=== PATIENT | female | born 1990 | race Caucasian/White ===

== ENCOUNTER 2017-08-12 16:31 | Emergency (ER) | payer MEDICAID ==
[2017-08-12 16:55] VITALS: BP 125/76; PULSE 83
--- NOTE | 2017-08-12 16:56 | PD ---
HPI Chief Complaint decreased mvt Date Seen: Aug 12, 2017 Time Seen: 17:06 Travel History International Travel<30 Days: No Contact w/Intl Traveler<30Days: No History of Present Illness HPI Patient is a 27 year old at 37 and 0/7 weeks gestation, PHYLLIS 09/02/2017, who presents to the OB ED with decreased movement. She denies leakage of fluid , vaginal bleeding, and contractions. She feels baby moving regularly. She denies CARUSO/N/V/D/fever/sick contacts/SOB/calf pain/dizziness/seeing spots. OB care is with [facility]. Para: 0 : 1 History Past Medical History Medical History: Denies Significant Hx Past Surgical History Surgical History: No Previous Surgery Family History Family History: Negative Social History Alcohol Use: No Tobacco Use: No Substance Abuse: No Allergies-Medications (Allergen,Severity, Reaction): Coded Allergies: prednisolone (Verified Allergy, Severe, Anaphylaxis, 08/12/17) Review of Systems General / Constitutional: No: Fever, Chills Eyes: No: Blurred Vision, Visual changes HENT: No: Headaches, Vertigo Cardiovascular: No: Chest Pain or Discomfort, Palpitations Respiratory: No: Cough, Short of Breath Gastrointestinal: No: Nausea, Vomiting, Diarrhea, Abdominal Pain Genitourinary: No: Urgency, Dysuria Musculoskeletal: No: Weakness, Edema Skin: No Rash, No Dryness Neurologic: No: Weakness, Syncope Psychiatric: No: Anxiety, Depression Physical Exam Narrative GENERAL: Well-nourished, well-developed patient. SKIN: Warm and dry. HEAD: Normocephalic and atraumatic. EYES: No scleral icterus. No injection or drainage. ENT: No nasal drainage noted. Mucous membranes pink. Airway patent. NECK: Supple, trachea midline. No JVD. CARDIOVASCULAR: Regular rate and rhythm without murmurs, gallops, or rubs. RESPIRATORY: Breath sounds equal bilaterally. No accessory muscle use. ABDOMEN/GI: Abdomen soft, non-tender, bowel sounds present, no rebound, no guarding. Gravid to 35+ weeks. GENITOURINARY: External Genitalia: intact and normal in appearance. Cervix 0/0/-3 Uterine Contractions: absent FHT's: Category: 1 Baseline: 130 Reactive: 180 Variability: mod Decels: absent EXTREMITIES: No cyanosis or edema. BACK: Nontender without obvious deformity. No CVA tenderness. NEUROLOGICAL: Awake and alert. Motor and sensory grossly within normal limits. Five out of 5 muscle strength in all muscle groups. Normal speech. Data Data Vital Signs Reviewed: Yes Orders Orders Vital Signs (Adult) .ON ADMISSION (08/12/17 16:55) ^ Labor Status (08/12/17 16:55) ^ Non Stress Test (08/12/17 16:55) ^ Hydration (08/12/17 16:55) MDM Narrative Course / MDM Pt presents with decreased mvt and normal NST. kick count counseling given. Patient reassured. F/u cfw one week Intrauterine : Category 1 tracing Expect vaginal delivery Cervix closed Intact membranes Routine care GBS collected in clinic [facility] home Diagnosis Diagnosis: Primary Impression: with 37 weeks completed gestation Additional Impression: Decreased movement Disposition: 01 DISCHARGE HOME Condition: Stable Patient Instructions: Movement (ED), Early Labor Signs (ED) Peggy Ahmadi MD R2 Aug 12, 2017 16:56
== END 2017-08-12 17:26 | disposition home or self-care (01) ==
LOC: HOBED 16:31
DX: O36.8130 Decreased fetal movements, third trimester, not applicable or unspecified (principal); Z3A.37 37 weeks gestation of pregnancy
CPT/HCPCS: 59025

== ENCOUNTER 2017-09-01 10:12 | Emergency (ER) | payer MEDICAID ==
--- NOTE | 2017-09-01 10:37 | PD ---
HPI Travel History International Travel<30 Days: No Contact w/Intl Traveler<30Days: No (Gill Garcia MD) History of Present Illness HPI 27-year-old at 39/6 weeks presents to the OB ED with elevated blood pressures. She is a patient of Dr. Sparks at [facility]. She reports that her blood pressure at the office was 156/96. She denies headaches, vision changes, abdominal pain, swelling in her extremities. Endorses mild cramping. She endorses good movement. She denies dysuria, leakage of fluid, vaginal bleeding, and contractions. Cervical check OB office was 2 cm. (Gill Garcia MD) History Past Medical History Medical History: Denies Significant Hx (Gill Garcia MD) Past Surgical History Surgical History: No Previous Surgery (Gill Garcia MD) Family History Family History: Negative (Gill Garcia MD) Social History Alcohol Use: No Tobacco Use: No Substance Abuse: No (Gill Garcia MD) Allergies-Medications (Allergen,Severity, Reaction): Coded Allergies: prednisolone (Verified Allergy, Severe, Anaphylaxis, 08/12/17) Home Meds Active Scripts Cephalexin (Keflex) 500 Mg Cap, 500 MG PO Q6H for Infection for 3 Days, #12 CAP 0 Refills Prov:Gill Garcia MD 09/01/17 Review of Systems Except as stated in HPI: all other systems reviewed are Neg (Gill Garcia MD) Physical Exam Vital Signs Date Time Temp Pulse Resp B/P (MAP) Pulse Ox O2 Delivery O2 Flow Rate FiO2 09/01/17 11:02 72 130/75 (93) Narrative GENERAL: Well-nourished, well-developed patient. SKIN: Warm and dry. HEAD: Normocephalic and atraumatic. EYES: No scleral icterus. No injection or drainage. ENT: No nasal drainage noted. Mucous membranes pink. Airway patent. NECK: Supple, trachea midline. No JVD. CARDIOVASCULAR: Regular rate and rhythm without murmurs, gallops, or rubs. RESPIRATORY: Breath sounds equal bilaterally. No accessory muscle use. BREASTS: Bilateral exam showed no masses , no retractions, no nipple discharge. ABDOMEN/GI: Abdomen soft, non-tender, bowel sounds present, no rebound, no guarding FHT's: Category: 1 Baseline: 120s Reactive: yes Variability: moderate Decels: none EXTREMITIES: No cyanosis or edema. BACK: Nontender without obvious deformity. No CVA tenderness. NEUROLOGICAL: Awake and alert. Motor and sensory grossly within normal limits. Five out of 5 muscle strength in all muscle groups. Normal speech. (Gill Garcia MD R1) Data Data Vital Signs Reviewed: Yes Orders Orders Vital Signs (Adult) .ON ADMISSION (09/01/17 10:30) ^ Labor Status (09/01/17 10:30) Heart (09/01/17 10:30) Urinalysis - C+S If Indicated (09/01/17 10:30) ^ Non Stress Test (09/01/17 10:30) ^ Hydration (09/01/17 10:30) Cbc No Diff, Includes Plts (09/01/17 10:30) Comprehensive Metabolic Panel (09/01/17 10:30) Uric Acid (09/01/17 10:30) Protein Creat Ratio, Random Ur (09/01/17 10:30) Group B Strep: Negative (Gill Garcia MD R1) MDM Plan 27-year-old at 39/6 weeks presents to the OB ED with elevated blood pressure. -Intrauterine , category 1, reassuring -Cervix: 2cm in OB office -Plt 349, Protein/creatinine ratio 0.32, LFTs wnl -Blood pressures here: 130s/ 80s -UA positive for trace leukocyte esterase and bacteria, will treat with Keflex 500mg q6h x 3 days -GBS negative -Will set patient up for induction on Friday 8pm -Advised patient to return to OB ED if LOF, contractions, VB, etc. -sdw Dr. Ward and Dr. Davidson (Gill Garcia MD R1) Diagnosis Diagnosis: Primary Impression: Additional Impressions: Elevated blood pressure affecting in third trimester, antepartum UTI (urinary tract infection) Disposition: 01 DISCHARGE HOME Condition: Stable Scripts Cephalexin (Keflex) 500 Mg Cap 500 MG PO Q6H for Infection for 3 Days, #12 CAP 0 Refills Prov: Gill Garcia MD R1 09/01/17 Gill Garcia MD R1 September 01, 2017 10:37 Florian Davidson MD R2 September 01, 2017 12:03
[2017-09-01 11:02] VITALS: BP 130/75; PULSE 72
[2017-09-01 11:14] LABS: HEMATOCRIT 32.4 % (35.0-46.0); HEMOGLOBIN 11.1 GM/DL (11.6-15.3); MEAN CORPUSCULAR HEMOGLOBIN 29.4 PG (27.0-34.0); MEAN CORPUSCULAR HGB CONC 34.2 % (32.0-36.0); MEAN PLATELET VOLUME 7.8 FL (7.0-11.0); PLATELET COUNT 349 TH/MM3 (150-450); RED BLOOD COUNT 3.76 MIL/MM3 (4.00-5.30); RED CELL DISTRIBUTION WIDTH 13.2 % (11.6-17.2); WHITE BLOOD COUNT 9.5 TH/MM3 (4.0-11.0)
[2017-09-01 11:31] LABS: BACTERIA, URINE OCC /hpf; BILIRUBIN, URINE NEG (NEG); BLOOD, URINE NEG (NEG); GLUCOSE,URINE NEG (NEG); KETONE, URINE NEG (NEG); MUCUS URINE FEW /lpf (OCC); NITRITE,URINE NEG (NEG); SQUAMOUS EPITHELIAL CELL URINE 1 /hpf (0-5); URINE COLOR LIGHT-YELLOW (YELLW/STRAW); URINE LEUKOCYTE ESTERASE TRACE (NEG)
[2017-09-01 11:34] LABS: ALBUMIN 2.7 GM/DL (3.4-5.0); BICARBONATE 21.9 MEQ/L (21.0-32.0); BLOOD UREA NITROGEN 10 MG/DL (7-18); CALCIUM 10.3 MG/DL (8.5-10.1); CHLORIDE 107 MEQ/L (98-107); CREATININE 0.66 MG/DL (0.50-1.00); GLOMERULAR FILTRATION RATE 108 ML/MIN (>89); GLUCOSE,RANDOM 79 MG/DL (74-106); SODIUM (NA) 139 MEQ/L (136-145)
[2017-09-01 11:47] LABS: ALKALINE PHOSPHATASE 150 U/L (45-117); ALT (GPT) 12 U/L (10-53); AST (GOT) 15 U/L (15-37); TOTAL BILIRUBIN ADULT 0.2 MG/DL (0.2-1.0); TOTAL PROTEIN 7.2 GM/DL (6.4-8.2)
[2017-09-01] MEDS ORDERED: CEPH-460 PO (12:02)
== END 2017-09-01 12:13 | disposition home or self-care (01) ==
LOC: HOBED 10:12
DX: O26.893 Other specified pregnancy related conditions, third trimester (principal); R03.0 Elevated blood-pressure reading, without diagnosis of hypertension; O23.43 Unspecified infection of urinary tract in pregnancy, third trimester; B96.20 Unspecified Escherichia coli [E. coli] as the cause of diseases classified elsewhere; Z3A.39 39 weeks gestation of pregnancy
CPT/HCPCS: 36415; 59025; 80053; 81001; 82570; 84156; 84550; 85027; 87077; 87086; 87186

== ENCOUNTER 2017-09-03 23:33 | Inpatient (IN) | payer MEDICAID ==
[~2017-09-03] VITALS: Ht 160 cm; Wt 86.0 kg
[~2017-09-03 23:33] MED LIST: CEPH-460 PO
[2017-09-04] VITALS (53 sets, daily range): BP systolic 115–165; BP diastolic 48–100; PULSE 65–131; RESP 15–22; TEMP 97.9–98.3; O2SAT 98–100
[2017-09-04] MEDS ORDERED: SODIUM CHLOR 0.9% 1000 ML INJ 1,000 ML OTHER PRN (00:57)
[2017-09-04] MEDS ORDERED: LACTATED RINGER'S 1000 ML INJ 1,000 ML IV PRN (00:59)
[2017-09-04] MEDS ORDERED: MINERAL OIL 10 ML VIAL TOPICAL PRN (01:00)
[2017-09-04] MEDS ORDERED: SODIUM CHLORID 0.9% 500 ML INJ 500 ML IV PRN (01:00)
[2017-09-04] MEDS ORDERED: LIDOCAINE HCL 1% 50 ML VIAL I-DERMAL PRN (01:00)
[2017-09-04] MEDS ORDERED: OXYTOCIN 30 UNITS-500ML PREMIX 500 ML IV ONE (01:00)
[2017-09-04] MEDS ORDERED: SODIUM CHLORIDE 0.9% FLUSH 10 ML FLUSH IV FLUSH PRN ×2 (01:00→23:00)
[2017-09-04] MEDS ORDERED: CITRIC ACID-SODIUM CITRATE LIQ 30 ML UDC PO SCH (01:00)
[2017-09-04] MEDS ORDERED: MISOPROSTOL 100 MCG TAB VAGINAL ONE ×2 (01:00→13:00)
[2017-09-04] MEDS ORDERED: LIDOCAINE HCL 1% 50 ML VIAL INFIL PRN (01:00)
--- NOTE | 2017-09-04 01:08 | HHI.HP ---
HPI Chief Complaint Scheduled induction Travel History International Travel<30 Days: No Contact w/Intl Traveler<30Days: No Known Affected Area: No History of Present Illness HPI 27 y/o , IUP at 40.2 care complicated by gestational HTN, scoliosis The patient presents for scheduled induction of labor. She reports good movement. She reports irregular contractions. She denies any leaking of fluid , vaginal bleeding, or other concerns. She denies any visual changes, RUQ or epigastric pain, or CARUSO. Weeks Gestation: 40 Para: 0 : 1 History Past Medical History Narrative Medical Scoliosis Obstetric History Obstetric History Past Surgical History Surgical History: No Previous Surgery Family History Family History: Negative Social History Alcohol Use: No Tobacco Use: No Substance Abuse: No Allergies-Medications (Allergen,Severity, Reaction): Coded Allergies: prednisolone (Verified Allergy, Severe, Anaphylaxis, 08/12/17) Home Meds Active Scripts Cephalexin (Keflex) 500 Mg Cap, 500 MG PO Q6H for Infection for 3 Days, #12 CAP 0 Refills Prov:Gill Garcia MD R1 09/01/17 Review of Systems Except as stated in HPI: all other systems reviewed are Neg Physical Exam Narrative GENERAL: Well-nourished, well-developed patient. SKIN: Warm and dry. HEAD: Normocephalic and atraumatic. EYES: No scleral icterus. No injection or drainage. ENT: No nasal drainage noted. Mucous membranes pink. Airway patent. NECK: Supple, trachea midline. No JVD. CARDIOVASCULAR: Regular rate and rhythm without murmurs, gallops, or rubs. RESPIRATORY: Breath sounds equal bilaterally. No accessory muscle use. BREASTS: Deferred ABDOMEN/GI: Abdomen soft, non-tender, bowel sounds present, no rebound, no guarding Gravid GENITOURINARY: External Genitalia: intact and normal in appearance. Normal EGBUS. No cervical or vaginal masses, normal rugae, physiologic discharge. SVE 0235 50/- 2 FHT's: heart tones in the 120s with moderate chcf variability, good accels, no decels. This is a category one heart rate tracing and reactive NST. EXTREMITIES: No cyanosis or edema. BACK: Nontender without obvious deformity. NEUROLOGICAL: Awake and alert. Motor and sensory grossly within normal limits. Normal speech. Psychiatric: grossly normal memory and affect Musculoskeletal: grossly normal ROM, gait, muscle strength Caprini VTE Risk Assessment Caprini VTE Risk Assessment: No/Low Risk (score <= 1) Caprini Risk Assessment Model Point Value = 1 Point Value = 2 Point Value = 3 Point Value = 5 Age 41-60 Minor surgery BMI > 25 kg/m2 Swollen legs Varicose veins or History of unexplained or recurrent spontaneous Oral contraceptives or hormone replacement Sepsis (< 1 month) Serious lung disease, including pneumonia (< 1 month) Abnormal pulmonary function Acute myocardial infarction Congestive heart failure (< 1 month) History of inflammatory bowel disease Medical patient at bed rest Age 61-74 Arthroscopic surgery Major open surgery (> 45 min) Laparoscopic surgery (> 45 min) Malignancy Confined to bed (> 72 hours) Immobilizing plaster cast Central venous access Age >= 75 History of VTE Family history of VTE Factor V Leiden Prothrombin [id number] Lupus anticoagulant Anticardiolipin antibodies Elevated serum homocysteine Heparin-induced thrombocytopenia Other congenital or acquired thrombophilia Stroke (< 1 month) Elective arthroplasty Hip, pelvis, or leg fracture Acute spinal cord injury (< 1 month) Prophylaxis Regimen Total Risk Factor Score Risk Level Prophylaxis Regimen 0-1 Low Early ambulation 2 Moderate Order ONE of the following: *Sequential Compression Device (SCD) *Heparin 5000 units SQ BID 3-4 Higher Order ONE of the following medications: *Heparin 5000 units SQ TID *Enoxaparin/Lovenox 40 mg SQ daily (WT < 150 kg, CrCl > 30 mL/min) *Enoxaparin/Lovenox 30 mg SQ daily (WT < 150 kg, CrCl > 10-29 mL/min) *Enoxaparin/Lovenox 30 mg SQ BID (WT < 150 kg, CrCl > 30 mL/min) AND/OR *Sequential Compression Device (SCD) 5 or more Highest Order ONE of the following medications: *Heparin 5000 units SQ TID (Preferred with Epidurals) *Enoxaparin/Lovenox 40 mg SQ daily (WT < 150 kg, CrCl > 30 mL/min) *Enoxaparin/Lovenox 30 mg SQ daily (WT < 150 kg, CrCl > 10-29 mL/min) *Enoxaparin/Lovenox 30 mg SQ BID (WT < 150 kg, CrCl > 30 mL/min) AND *Sequential Compression Device (SCD) Data Data Orders Orders Admit To Inpatient (09/04/17 ) Diet Liquid (09/04/17 Breakfast) Activity Oob Ad Linette (09/04/17 00:57) ^ Labor Induction (09/04/17 00:57) ^ Vaginal Insert (09/04/17 00:57) ^ Vaginal Lavage (09/04/17 00:57) Heart (09/04/17 00:57) Misoprostol (Cytotec) (09/04/17 01:00) Misoprostol (Cytotec) (09/04/17 05:00) Sodium Chloride 0.9% Flush (Ns Flush) (09/04/17 09:00) Sodium Chloride 0.9% Flush (Ns Flush) (09/04/17 01:00) Sodium Chlor 0.9% 1000 Ml Inj (Ns 1000 M (09/04/17 00:57) Admit To Inpatient (09/04/17 ) Code Status (09/04/17 00:59) Vital Signs (Adult) .Per protocol (09/04/17 00:59) Heart (09/04/17 00:59) Amnioinfusion (09/04/17 00:59) Urinary Catheter Management .ONCE (09/04/17 00:59) Lactated Ringer's 1000 Ml Inj (Lr 1000 M (09/04/17 00:59) Lactated Ringer's 1000 Ml Inj (Lr 1000 M (09/04/17 00:59) Sodium Chlorid 0.9% 500 Ml Inj (Ns 500 M (09/04/17 01:00) Sodium Chlor 0.9% 1000 Ml Inj (Ns 1000 M (09/04/17 01:19) Lidocaine 1% Inj (50 Ml) (Xylocaine 1% I (09/04/17 01:00) Citric Acid-Sodium Citrate Liq (Bicitra (09/04/17 01:00) Fentanyl Inj (Fentanyl Inj) (09/04/17 01:00) Fentanyl Inj (Fentanyl Inj) (09/04/17 01:00) Complete Blood Count With Diff (09/04/17 00:59) Hold Clot (09/04/17 00:59) Abo/Rh Blood Type (09/04/17 00:59) Urinalysis - C+S If Indicated (09/04/17 00:59) Drug Screen, Random Urine (09/04/17 00:59) Ob/Psych Drug Screen, Urine (09/04/17 00:59) Resp Oxygen Non Rebreathe Mask (09/04/17 ) ^ Epidural / Intrathecal Infus (09/04/17 00:59) Oxytocin 30 Units-500ml Premix (Pitocin (09/04/17 01:00) Lidocaine 1% Inj (50 Ml) (Xylocaine 1% I (09/04/17:00) Light Mineral Oil (Muri-Lube Oil) (09/04/17 01:00) Inpatient Certification (09/04/17 ) Specimen To Be Collected PRN (09/04/17 00:59) Specimen To Be Collected PRN (09/04/17 00:59) Assessment/Plan Assessment and Plan A/P: 1. IUP at 40.2 2. Gestational HTN: no symptoms of preeclampsia, stable BP at this time, will check preeclampsia labs 3. IOL: discussed risks, benefits, and alternatives to induction of labor. We discussed induction of labor increase her rate but that it is medically indicated. We discussed that if she requires a delivery there are risks associated with it as well including but not limited to pain, infection, bleeding, injury to other organs like the bladder/bowel/nerves/ vessels, injury to the baby, need for repeat surgery, need for hysterectomy, need for blood transfusion, wound infection/breakdown, other associated risks. We discussed that the goal is a healthy and a vaginal delivery if possible. All of patient's questions were answered and consent was signed. We will start induction of labor with Cytotec 25 mcg vaginally. Discussed the benefits, risks, and alternatives of Cytotec versus Cervidil. The patient is in agreement with proceeding with Cytotec. Cytotec placed without difficulty. 4. well-being: Reassuring testing with reactive NST and category 1 heart rate tracing 5. GBS negative 6. Sivan Sherman MD September 04, 2017 01:08
[2017-09-04] MEDS ORDERED: SODIUM CHLOR 0.9% 1000 ML INJ 1,000 ML IV PRN (01:19)
[2017-09-04] MEDS ORDERED: MISOPROSTOL 25 MCG TAB VAGINAL ONE (01:30)
[2017-09-04 01:55] LABS: AMORPHOUS SEDIMENT, URINE FEW; BACTERIA, URINE FEW /hpf; BILIRUBIN, URINE NEG (NEG); BLOOD, URINE NEG (NEG); GLUCOSE,URINE NEG (NEG); KETONE, URINE NEG (NEG); MUCUS URINE FEW /lpf (OCC); NITRITE,URINE NEG (NEG); SQUAMOUS EPITHELIAL CELL URINE 5 /hpf (0-5); URINE COLOR LIGHT-YELLOW (YELLW/STRAW); URINE LEUKOCYTE ESTERASE MOD (NEG)
[2017-09-04 02:05] LABS: BASOPHIL % 0.4 % (0.0-2.0); EOSINOPHIL # 0.3 TH/MM3 (0-0.4); EOSINOPHIL % 3.4 % (0.0-4.0); HEMATOCRIT 30.2 % (35.0-46.0); HEMOGLOBIN 10.5 GM/DL (11.6-15.3); LYMPH % 21.5 % (9.0-44.0); MEAN CELL VOLUME 86.8 FL (80.0-100.0); MEAN CORPUSCULAR HEMOGLOBIN 30.2 PG (27.0-34.0); MEAN CORPUSCULAR HGB CONC 34.8 % (32.0-36.0); MEAN PLATELET VOLUME 8.1 FL (7.0-11.0); MONO % 9.6 % (0.0-8.0); MONOCYTE # 0.9 TH/MM3 (0-0.9); NEUT % 65.1 % (16.0-70.0); PLATELET COUNT 336 TH/MM3 (150-450); RED BLOOD COUNT 3.48 MIL/MM3 (4.00-5.30); RED CELL DISTRIBUTION WIDTH 13.5 % (11.6-17.2); WHITE BLOOD COUNT 9.2 TH/MM3 (4.0-11.0)
[2017-09-04 04:13] LABS: ALBUMIN 2.6 GM/DL (3.4-5.0); ALKALINE PHOSPHATASE 144 U/L (45-117); ALT (GPT) 11 U/L (10-53); AST (GOT) 12 U/L (15-37); BICARBONATE 23.9 MEQ/L (21.0-32.0); BLOOD UREA NITROGEN 11 MG/DL (7-18); CALCIUM 9.2 MG/DL (8.5-10.1); CHLORIDE 106 MEQ/L (98-107); CREATININE 0.69 MG/DL (0.50-1.00); GLOMERULAR FILTRATION RATE 103 ML/MIN (>89); GLUCOSE,RANDOM 88 MG/DL (74-106); SODIUM (NA) 139 MEQ/L (136-145); TOTAL BILIRUBIN ADULT 0.1 MG/DL (0.2-1.0); TOTAL PROTEIN 6.8 GM/DL (6.4-8.2)
[2017-09-04] MEDS ORDERED: MISOPROSTOL 25 MCG TAB VAGINAL PRN (05:00)
[2017-09-04] MEDS: LACTATED RINGER'S 1000 ML INJ 1,000 ML IV SCH ×3 (06:43→17:39)
[2017-09-04] MEDS: SODIUM CHLORIDE 0.9% FLUSH 10 ML FLUSH IV FLUSH SCH ×2 (09:00→21:00)
--- NOTE | 2017-09-04 10:53 | PD.LABORPN ---
Subjective Subjective Patient doing well No complaints Objective Vital Signs Vital Signs Date Time Temp Pulse Resp B/P (MAP) Pulse Ox O2 Delivery O2 Flow Rate FiO2 09/04/17 09:00 98.3 18 09/04/17 08:50 73 138/83 (101) 09/04/17 06:45 98.2 18 09/04/17 06:32 68 115/59 (77) 09/04/17 04:45 98.1 18 09/04/17 04:43 66 128/75 (92) Objective Pelvic Exam: Cervix: midposition Dilatation: 1-2 Effacement: 60 Station: -2 Presentation: vertex Membranes: intact Uterine Contractions: every 4min FHT's: Category: 1 Baseline: 130s Reactive: yes Variability: moderate Decels: none Weeks Gestation: 40 Assessment/Plan Assessment and Plan 27yr old G1Po at 40/3 weeks admitted to L & D for induction due to gestational HTN -Intrauterine , category 1, reassuring -s/p cytotec 25mcg x 2 -cervix- 1-2cm, 50, -2, will administer another dose of cytotec 50mcg and start pitocin if needed -GBS negative -Anticipate vaginal delivery dw Gill Doan MD R1 September 04, 2017 10:53
[2017-09-04] MEDS ORDERED: PILL SPLITTER OTHER PRN (11:15)
--- NOTE | 2017-09-04 14:46 | HHI.PR ---
[facility] NURSE Note Note Patient has received 2 prior cytotec 25 mcg. A break was taken to the patient could have a regular diet. Patient complains of increasingly painful contractions over the past 2 hours and cervical examination was performed that showed a cervix of 3/80 and -2. Artificial rupture membranes with clear fluid was obtained. Category 1 heart rate tracing is visualized with a baseline of 140, moderate variability, absent decelerations. Norma Ward MD September 04, 2017 14:46
[2017-09-04] MEDS ORDERED: MEASLES, MUMPS, RUBELLA VACCINE 0.5 ML VIAL SQ ONE (16:00)
[2017-09-04] MEDS ORDERED: DIPHTH/TETANUS/ACEL PERTUSSIS (BOOSTER) 0.5 ML VIAL/PFS IM ONE (16:00)
[2017-09-04] MEDS ORDERED: OXYTOCIN 30 UNITS/NS 500ML PREMIX IV PRN (18:30)
[2017-09-04] MEDS ORDERED: ePHEDrine/NS 25 MG/5 ML SYRINGE ONE (18:54)
[2017-09-04] MEDS ORDERED: fentaNYL 2MCG-BUPIV 0.125% INJ 100 ML ONE (18:54)
[2017-09-04] MEDS ORDERED: LIDOCAINE HCL 1% PF 5 ML AMPULE ONE (18:59)
[2017-09-04] MEDS ORDERED: fentaNYL 2MCG-BUPIV 0.125% 100 ML EPIDURAL PRN (19:45)
[2017-09-04] MEDS ORDERED: ePHEDrine/NS 25 MG/5 ML SYRINGE IV PUSH PRN (19:45)
[2017-09-04] MEDS ORDERED: DO NOT ADMINISTER ANTICOAGULANTS PRN (19:45)
[2017-09-04] MEDS ORDERED: NO SYSTEM NARCOTICS PRN (19:45)
[2017-09-04] MEDS ORDERED: fentaNYL 2MCG-BUPIV 0.125% 150 ML EPIDURAL PRN (19:45)
--- NOTE | 2017-09-04 20:53 | PD.LABORPN ---
Subjective Subjective S/P epidural placement. Patient with much improved pain level Objective Vital Signs Vital Signs Date Time Temp Pulse Resp B/P (MAP) Pulse Ox O2 Delivery O2 Flow Rate FiO2 09/04/17 20:30 82 120/66 (84) 09/04/17 20:15 77 120/71 (87) 09/04/17 20:05 85 09/04/17 20:00 65 09/04/17 20:00 119/52 (74) 98 09/04/17 19:56 15 09/04/17 19:55 74 09/04/17 19:55 71 118/54 (75) 09/04/17 19:55 98 09/04/17 19:50 77 124/61 (82) 98 09/04/17 19:45 80 121/57 (78) 99 09/04/17 19:40 79 123/60 (81) 99 09/04/17 19:35 82 122/58 (79) 99 09/04/17 19:30 86 128/61 (83) 100 09/04/17 19:25 86 130/61 (84) 09/04/17 19:24 88 134/65 (88) 09/04/17 19:20 100 09/04/17 19:20 98 145/70 (95) 09/04/17 19:20 94 09/04/17 19:15 100 09/04/17 19:15 93 150/85 (106) 09/04/17 19:15 92 09/04/17 19:10 101 165/84 (111) 09/04/17 19:10 100 09/04/17 19:10 100 09/04/17 19:05 131 09/04/17 19:05 123 09/04/17 19:05 99 09/04/17 19:00 17 09/04/17 19:00 22 09/04/17 18:45 91 153/100 (117) 09/04/17 17:52 77 146/90 (108) 09/04/17 17:51 98.3 18 09/04/17 16:59 73 136/77 (96) 09/04/17 15:59 98.0 74 18 09/04/17 15:59 143/89 (107) 09/04/17 15:45 98.0 18 09/04/17 15:33 74 143/89 (107) 09/04/17 14:45 20 09/04/17 14:43 78 150/88 (108) 09/04/17 12:58 84 139/84 (102) Objective Pelvic Exam: Cervix: [-] Dilatation: [-5] Effacement: [80-] Station: [-1] Presentation: [-] Membranes: [intact or ruptured]R Uterine Contractions: [-]Q4 FHT's: Category: [-] 1 Baseline: [-] 140 Reactive: [-] mod Variability: [-]mod Decels: [-] Occasional variable decelerations to 120 with contractions Weeks Gestation: 40 Assessment/Plan Assessment and Plan Patient doing well in active stage of labor Pitocin augmentation due to hypotonic labor pattern Consider amnioinfusion Norma Ward MD September 04, 2017 20:53
[2017-09-04] MEDS ORDERED: LIDOCAINE 2%/EPINEPHrine PF 1:200,000 20ML SDV ONE ×2 (21:31→22:04)
[2017-09-04] MEDS ORDERED: BUPIVACAINE HCL PF 0.25% 10 ML VIAL ONE (21:31)
--- NOTE | 2017-09-04 22:56 | PD.OB.DELI ---
Weeks gestation: 40 Pt started active labor?: Yes Medical induction of labor?: Yes Artificial rupture of membrane: Yes Anesthesia: Epidural Episiotomy: None, Other (2cm right vaginal hematoma tied off with 2-0 chromic) Vaginal Delivery: Normal, Spontaneous Presentation: Occiput anterior, Vertex Nuchal Cord: x1 Delayed cord clamping (45 sec): Yes Infant: Female Delivery date: September 04, 2017 Delivery time: 10:43 One Minute : 8 Five Minute : 9 Placenta: Spontaneous delivery, Intact, 3 vessel cord Laceration: No lacerations Estimated blood loss: 200 Norma Ward MD September 04, 2017 22:56
[2017-09-04] MEDS ORDERED: ONDANSETRON ODT 4 MG TAB PO PRN (23:00)
[2017-09-04] MEDS ORDERED: ALUMINUM/MAGNESIUM/SIMETH 30 ML CUP PO PRN (23:00)
[2017-09-04] MEDS ORDERED: WITCH HAZEL 50%/GLYCERIN 12.5% 40 PAD JAR TOPICAL PRN (23:00)
[2017-09-04] MEDS ORDERED: OXYTOCIN 30 UNITS-500ML PREMIX 500 ML IV SCH (23:00)
[2017-09-04] MEDS ORDERED: ACETAMINOPHEN 325 MG TAB PO PRN (23:00)
[2017-09-04] MEDS ORDERED: BENZOCAINE 20% TOPICAL SPRAY 60 ML CAN TOPICAL PRN (23:00)
[2017-09-04] MEDS ORDERED: ZOLPIDEM TARTRATE 5 MG TAB PO PRN (23:00)
[2017-09-05] VITALS: BP 121/70; PULSE 97
[2017-09-05 00:05] VITALS: RESP 14
[2017-09-05 00:30] VITALS: BP 112/67; PULSE 91
[2017-09-05] MEDS: IBUPROFEN 800 MG TAB PO PRN ×3 (00:56→17:58)
[2017-09-05 04:00] VITALS: BP 136/80; PULSE 88; RESP 16; TEMP 99
[2017-09-05 08:00] VITALS: BP 118/66; PULSE 76; RESP 20; TEMP 98.1
--- NOTE | 2017-09-05 08:04 | HHI.OB ---
Subjective Post Day: 1 Remarks Patient seen and examined this morning. AFVSS. day #1. Patient reports she is feeling well overall. She states her pain has been well controlled with her current regimen. Decreased lochia. Tolerating diet without nausea or vomiting. She denies fevers or chills, chest pain, dyspnea, cough, dysuria. She otherwise does not have any specific complaints or concerns. Objective Vitals/I&O Vital Signs Date Time Temp Pulse Resp B/P (MAP) Pulse Ox O2 Delivery O2 Flow Rate FiO2 09/05/17 04:00 16 09/05/17 04:00 99.0 88 136/80 (98) 09/05/17 00:30 91 112/67 (82) 09/05/17 00:05 14 09/05/17 00:00 97 121/70 (87) 09/04/17 23:50 15 09/04/17 23:45 94 125/64 (84) 09/04/17 23:35 15 09/04/17 23:30 106 130/70 (90) 09/04/17 23:20 15 09/04/17 23:15 100 132/72 (92) 09/04/17 23:01 110 115/85 (95) 09/04/17 22:59 112 125/48 (73) 09/04/17 22:00 142/72 (95) 09/04/17 21:45 105 123/78 (93) 09/04/17 21:30 93 128/80 (96) 09/04/17 21:15 80 121/74 (90) 09/04/17 21:00 90 135/72 (93) 09/04/17 20:45 73 124/69 (87) 09/04/17 20:30 82 120/66 (84) 09/04/17 20:15 77 120/71 (87) 09/04/17 20:05 121/60 (80) 98 09/04/17 20:05 85 09/04/17 20:00 65 09/04/17 20:00 119/52 (74) 98 09/04/17 19:56 15 09/04/17 19:55 74 09/04/17 19:55 71 118/54 (75) 09/04/17 19:55 98 09/04/17 19:50 77 124/61 (82) 98 09/04/17 19:45 80 121/57 (78) 99 09/04/17 19:40 79 123/60 (81) 99 09/04/17 19:35 82 122/58 (79) 99 09/04/17 19:30 86 128/61 (83) 100 09/04/17 19:25 86 130/61 (84) 09/04/17 19:24 88 134/65 (88) 09/04/17 19:20 100 09/04/17 19:20 98 145/70 (95) 09/04/17 19:20 94 09/04/17 19:15 100 09/04/17 19:15 93 150/85 (106) 09/04/17 19:15 92 09/04/17 19:10 101 165/84 (111) 09/04/17 19:10 100 09/04/17 19:10 100 09/04/17 19:05 131 09/04/17 19:05 123 09/04/17 19:05 99 09/04/17 19:00 17 09/04/17 19:00 22 09/04/17 18:45 91 153/100 (117) 09/04/17 17:52 77 146/90 (108) 09/04/17 17:51 98.3 18 09/04/17 16:59 73 136/77 (96) 09/04/17 15:59 98.0 74 18 09/04/17 15:59 143/89 (107) 09/04/17 15:45 98.0 18 09/04/17 15:33 74 143/89 (107) 09/04/17 14:45 20 09/04/17 14:43 78 150/88 (108) 09/04/17 12:58 84 139/84 (102) 09/04/17 11:15 16 09/04/17 11:00 78 128/74 (92) 09/04/17 09:00 98.3 18 09/04/17 08:50 73 138/83 (101) Objective Remarks GENERAL: Well-nourished, well-developed patient. CARDIOVASCULAR: Regular rate and rhythm without murmurs, gallops, or rubs. RESPIRATORY: Breath sounds equal bilaterally. No accessory muscle use. ABDOMEN/GI: Abdomen soft, non-tender. Fundus: Firm, non-tender at umbilicus. GENITOURINARY: Light to moderate bleeding. EXTREMITIES: No cyanosis or edema, non-tender, without signs of DVT. Medications and IVs Current Medications Medications (Trade) Dose Ordered Sig/German Route Start Time Stop Time Status Last Admin (NS Flush) 2 ml BID IV FLUSH 09/04/17 09:00 (NS Flush) 2 ml UNSCH PRN IV FLUSH 09/04/17 01:00 Lactated Ringer's 1,000 ml @ 125 mls/hr Q8H IV 09/04/17 00:59 09/04/17 17:39 Lactated Ringer's 1,000 ml @ 3,000 mls/hr Q20M PRN IV 09/04/17 00:59 Sodium Chloride 1,000 ml @ 100 mls/hr Q10H PRN IV 09/04/17 01:19 (Xylocaine 1% Inj (50 ml)) 0.1 ml UNSCH X1 PRN I-DERMAL 09/04/17 01:00 09/07/17 00:59 (Bicitra Liq) 30 ml LACE BURN OUT TENDER PO 09/04/17 01:00 09/08/17 00:59 (fentaNYL INJ) 50 mcg Q1H PRN IV PUSH 09/04/17 01:00 09/04/17 18:27 (fentaNYL INJ) 100 mcg Q1H PRN IV PUSH 09/04/17 01:00 (Xylocaine 1% Inj (50 ml)) 10 ml UNSCH X1 PRN INFIL 09/04/17 01:00 09/06/17 00:59 (Muri-Lube Oil) 10 ml UNSCH PRN TOPICAL 09/04/17 01:00 (Pill Splitter) 1 ea UNSCH PRN OTHER 09/04/17 11:15 Oxytocin 500 ml @ 0 mls/hr TITRATE PRN IV 09/04/17 18:30 09/04/17 18:48 ([facility]) No systemic narcotics to be given except... UNSCH PRN .XX 09/04/17 19:45 09/05/17 19:44 ([facility]) DO NOT ADMINISTER ANY ANTICOAGUL... UNSCH PRN .XX 09/04/17 19:45 09/05/17 19:44 Fentanyl/ Bupivacaine HCl 100 ml @ 0 mls/hr TITRATE PRN EPIDURAL 09/04/17 19:45 Fentanyl/ Bupivacaine/ Sodium Chlor 150 ml @ 0 mls/hr TITRATE PRN EPIDURAL 09/04/17 19:45 09/04/17 19:39 (ePHEDrine/NS 25 MG/5 ML SYR) 10 mg UNSCH PRN IV PUSH 09/04/17 19:45 09/05/17 19:44 (NS Flush) 2 ml BID IV FLUSH 09/05/17 09:00 (NS Flush) 2 ml UNSCH PRN IV FLUSH 09/04/17 23:00 (Tylenol) 650 mg Q4H PRN PO 09/04/17 23:00 (Motrin) 800 mg Q8H PRN PO 09/04/17 23:00 09/05/17 00:56 (Americaine 20% Top Spr) 1 spray Q4H PRN TOPICAL 09/04/17 23:00 (Tucks Pads) 1 applic QID PRN TOPICAL 09/04/17 23:00 09/05/17 01:30 (Farzana-Colace) 2 tab Q12H PRN PO 09/04/17 23:00 (Ambien) 5 mg HS PRN PO 09/04/17 23:00 (Mag-Al Plus Susp Liq) 15 ml Q8H PRN PO 09/04/17 23:00 (Zofran Odt) 4 mg Q6H PRN PO 09/04/17 23:00 Assessment/Plan Problem List: (1) care following vaginal delivery ICD Codes: Z39.2 - Encounter for routine follow-up Assessment and Plan 27 year old now PPD#1 s/p . 1. Care - AFVSS - Continue motrin or percocet prn pain - Encouraged OOB, as tolerated - Advised pelvic rest x 6 weeks - Contraception: Discussed with patient this AM, patient desiring an IUD - Recommended follow up with her OB provider within 6 weeks after hospital discharge - Anticipate discharge tomorrow pending stable clinical course Florian Wolfe Dr., MD R2 September 05, 2017 08:04
[2017-09-05] MEDS ORDERED: SODIUM CHLORIDE 0.9% FLUSH 10 ML FLUSH IV FLUSH SCH (09:00)
[2017-09-05] MEDS: DOCUSATE SODIUM 50 MG/SENNA 8.6 MG TAB PO PRN (09:16)
--- NOTE | 2017-09-05 13:19 | HHI.DCPOC ---
Discharge Care Plan Diagnosis: (1) care following vaginal delivery Report Symptoms to Your Doctor -Temperature above 100.5 degrees -Redness, of incision or excessive or foul smelling drainage -Unusual pain or calf pain -Increased vaginal bleeding -Painful or difficulty urinating -Feelings of extreme sadness or anxiety after 2 weeks Goals to Promote Your Health * To maintain your health at the optimal level, follow up with your OB provider within 6 weeks after hospital discharge. Directions to Meet Your Goals Take your medications as prescribed Follow your dietary instruction Follow activity as directed Ensure plenty of rest for recovery Drink fluids for hydration Keep your appointments as scheduled Take your immunizations and boosters as scheduled If your symptoms worsen call your PCP, if no PCP go to Urgent Care Center or Emergency Room Smoking is Dangerous to Your Health. Avoid second hand smoke Call the 24-hour crisis hotline for domestic abuse at Florian Davidson MD R2 September 05, 2017 13:19
[2017-09-05] MEDS ORDERED: IBUP1TAB7 PO (13:20)
[2017-09-05] MEDS ORDERED: PERI PO (13:20)
[2017-09-05 21:01] VITALS: BP 127/64; PULSE 80; RESP 19; TEMP 97.3
[2017-09-06] MEDS: DOCUSATE SODIUM 50 MG/SENNA 8.6 MG TAB PO PRN (01:22)
[2017-09-06] MEDS: IBUPROFEN 800 MG TAB PO PRN ×2 (01:23→10:39)
--- NOTE | 2017-09-06 07:45 | HHI.OB ---
Subjective Post Day: 2 Remarks day # 2. AFVSS overnight.No BP abnormalities since delivery of her baby. Decreased lochia. Denies dysuria. No breast tenderness. She is feeding the baby via breast. Appetite good. No nausea or vomiting. Ambulating well. Denies calf pain or shortness of breath. Otherwise, she is doing well this morning and has no other concerns. Objective Vitals/I&O Vital Signs Date Time Temp Pulse Resp B/P (MAP) Pulse Ox O2 Delivery O2 Flow Rate FiO2 09/05/17 21:01 97.3 80 19 127/64 (85) 09/05/17 08:00 98.1 76 20 118/66 (83) Objective Remarks GENERAL: Well-nourished, well-developed patient. CARDIOVASCULAR: Regular rate and rhythm without murmurs, gallops, or rubs. RESPIRATORY: Breath sounds equal bilaterally. No accessory muscle use. ABDOMEN/GI: Abdomen soft, non-tender. Fundus: Firm, non-tender at umbilicus. GENITOURINARY: Light to moderate bleeding. EXTREMITIES: No cyanosis or edema, non-tender, without signs of DVT. Medications and IVs Current Medications Medications (Trade) Dose Ordered Sig/German Route Start Time Stop Time Status Last Admin (NS Flush) 2 ml BID IV FLUSH 09/04/17 09:00 (NS Flush) 2 ml UNSCH PRN IV FLUSH 09/04/17 01:00 Lactated Ringer's 1,000 ml @ 125 mls/hr Q8H IV 09/04/17 00:59 09/04/17 17:39 Lactated Ringer's 1,000 ml @ 3,000 mls/hr Q20M PRN IV 09/04/17 00:59 Sodium Chloride 1,000 ml @ 100 mls/hr Q10H PRN IV 09/04/17 01:19 (Xylocaine 1% Inj (50 ml)) 0.1 ml UNSCH X1 PRN I-DERMAL 09/04/17 01:00 09/07/17 00:59 (Bicitra Liq) 30 ml ASBESTOS [employer] PO 09/04/17 01:00 09/08/17 00:59 (fentaNYL INJ) 50 mcg Q1H PRN IV PUSH 09/04/17 01:00 09/04/17 18:27 (fentaNYL INJ) 100 mcg Q1H PRN IV PUSH 09/04/17 01:00 (Muri-Lube Oil) 10 ml UNSCH PRN TOPICAL 09/04/17 01:00 (Pill Splitter) 1 ea UNSCH PRN OTHER 09/04/17 11:15 Oxytocin 500 ml @ 0 mls/hr TITRATE PRN IV 09/04/17 18:30 09/04/17 18:48 Fentanyl/ Bupivacaine HCl 100 ml @ 0 mls/hr TITRATE PRN EPIDURAL 09/04/17 19:45 Fentanyl/ Bupivacaine/ Sodium Chlor 150 ml @ 0 mls/hr TITRATE PRN EPIDURAL 09/04/17 19:45 09/04/17 19:39 (NS Flush) 2 ml BID IV FLUSH 09/05/17 09:00 (NS Flush) 2 ml UNSCH PRN IV FLUSH 09/04/17 23:00 (Tylenol) 650 mg Q4H PRN PO 09/04/17 23:00 09/05/17 12:54 (Motrin) 800 mg Q8H PRN PO 09/04/17 23:00 09/06/17 01:23 (Americaine 20% Top Spr) 1 spray Q4H PRN TOPICAL 09/04/17 23:00 (Tucks Pads) 1 applic QID PRN TOPICAL 09/04/17 23:00 09/05/17 01:30 (Farzana-Colace) 2 tab Q12H PRN PO 09/04/17 23:00 09/06/17 01:22 (Ambien) 5 mg HS PRN PO 09/04/17 23:00 (Mag-Al Plus Susp Liq) 15 ml Q8H PRN PO 09/04/17 23:00 (Zofran Odt) 4 mg Q6H PRN PO 09/04/17 23:00 Assessment/Plan Problem List: (1) care following vaginal delivery ICD Codes: Z39.2 - Encounter for routine follow-up Assessment and Plan 27 year old now PPD#2 s/p . 1. Care - AFVSS - Continue motrin or tylenol prn pain - Encouraged OOB, as tolerated - Advised pelvic rest x 6 weeks - Contraception: Discussed with patient this AM, patient desiring an IUD - Recommended follow up with her OB provider in one week for BP check - Anticipate discharge today pending stable clinical course dw Dr. Krissy Ahmadi,Peggy Cordova MD R2 September 06, 2017 07:45
[2017-09-06 08:00] VITALS: BP 120/78; PULSE 82; RESP 20; TEMP 97.9
== END 2017-09-06 13:10 | disposition home or self-care (01) | DRG 775 ==
LOC: H2EA 23:33 → H1EA 09-05 01:07
PROVIDERS: ADMIT Obstetrics & Gynecology; ATTEND Obstetrics & Gynecology
PROC: 10E0XZZ Delivery of Products of Conception, External Approach (ICD-10-PCS; principal; 2017-09-04)
PROC: 3E033VJ Introduction of Other Hormone into Peripheral Vein, Percutaneous Approach (ICD-10-PCS; 2017-09-04)
PROC: 10907ZC Drainage of Amniotic Fluid, Therapeutic from Products of Conception, Via Natural or Artificial Opening (ICD-10-PCS; 2017-09-04)
PROC: 00HU33Z Insertion of Infusion Device into Spinal Canal, Percutaneous Approach (ICD-10-PCS; 2017-09-04)
PROC: 3E0R3BZ Introduction of Anesthetic Agent into Spinal Canal, Percutaneous Approach (ICD-10-PCS; 2017-09-04)
DX: O13.4 Gestational [pregnancy-induced] hypertension without significant proteinuria, complicating childbirth (principal); O71.7 Obstetric hematoma of pelvis; O69.81X0 Labor and delivery complicated by cord around neck, without compression, not applicable or unspecified; M41.9 Scoliosis, unspecified; Z37.0 Single live birth; Z3A.40 40 weeks gestation of pregnancy; Z23 Encounter for immunization
CPT/HCPCS: 59025; 80053; 80307; 81001; 85025; 86900; 86901; 90715; G0481; J2590; J3010; J7040; J7120